=== PATIENT | female | born 1955 | race Caucasian/White ===

== ENCOUNTER 2018-02-18 09:44 | Day surgery (SDC) | payer SELFPAY, MEDICAID ==
[~2018-02-18 09:44] MED LIST: ETOMIDATE 20 MG INJ; LIDOCAINE 2% (SDV) 5 ML INJ
[2018-02-18] MEDS: SOD CHLORIDE 0.9% 1,000 ML IV ×3 (10:23→14:42)
[2018-02-18 10:31] LABS: ADD MAN DIFF? NO
[2018-02-18 10:37] LABS: WHITE BLOOD COUNT 15.4 10^3/ul (4.8-10.8)
[2018-02-18 10:37] LABS: BASOPHIL # 0.1 10^3/ul (0.0-0.1); BASOPHILS % 0.5 % (0.0-2.0); EOSINOPHILS % 0.1 % (0.0-7.0); HEMOGLOBIN 11.1 g/dl (12.0-16.0); LYMPHOCYTES # 1.1 10^3/ul (0.8-2.9); LYMPHOCYTES % 7.3 % (15.0-51.0); MEAN CORPUSCULAR HEMOGLOBIN 29.3 pg (29.0-33.0); MEAN CORPUSCULAR HGB CONC 32.6 g/dl (32.0-37.0); MEAN CORPUSCULAR VOLUME 89.7 fl (82.0-101.0); MEAN PLATELET VOLUME 8.7 fl (7.4-10.4); MONOCYTE # 0.5 10^3/ul (0.3-0.9); MONOCYTES % 3.5 % (0.0-11.0); NEUTROPHIL # 13.5 10^3/ul (1.6-7.5); NEUTROPHILS % 87.8 % (39.0-77.0); PLATELET COUNT 296 10^3/UL (140-415); RED BLOOD COUNT 3.79 10^6/ul (4.20-5.40); RED CELL DISTRIBUTION WIDTH 13.5 % (11.5-14.5)
[2018-02-18 10:51] LABS: ALANINE AMINOTRANSFERASE 38 IU/L (13-69); ALBUMIN 4.5 g/dl (3.3-4.9); ALKALINE PHOSPHATASE 169 IU/L (42-121); ANION GAP 18 (8-16); ASPARTATE AMINO TRANSFERASE 30 IU/L (15-46); BILIRUBIN,INDIRECT 0.4 mg/dl (0-1.1); BILIRUBIN,TOTAL 0.4 mg/dl (0.2-1.3); BLOOD UREA NITROGEN 16 mg/dl (7-20); CALCIUM 9.7 mg/dl (8.4-10.2); CARBON DIOXIDE 21 mmol/L (21-31); CHLORIDE 100 mmol/L (97-110); CREATININE 1.14 mg/dl (0.44-1.00); GLUCOSE 285 mg/dl (70-220); POTASSIUM 4.8 mmol/L (3.5-5.1); SODIUM 134 mmol/L (135-144); TOTAL PROTEIN 7.7 g/dl (6.1-8.1)
[2018-02-18 10:52] LABS: INR 0.93; PROTIME 12.6 Sec (11.9-14.9)
[2018-02-18 10:53] LABS: PARTIAL THROMBOPLASTIN TIME 26.3 Sec (25.0-35.0)
[2018-02-18 11:23] LABS: TROPONIN-I < 0.012 ng/ml (0.000-0.120)
[2018-02-18] MEDS: IODIXANOL LOCM 100 ML BTL (11:39)
[2018-02-18] MEDS: SOD CHLORIDE 0.9% 100 ML (11:39)
[2018-02-18] MEDS ORDERED: ONDANSETRON 4 MG INJ IV (15:30)
[2018-02-18] MEDS ORDERED: MIDAZOLAM 1 MG/ML 2 ML INJ (15:41)
[2018-02-18] MEDS ORDERED: FENTAnyl 50 MCG/ML VIAL (15:41)
[2018-02-18] MEDS ORDERED: CEFAZOLIN 1 GM INJ (15:41)
[2018-02-18] MEDS ORDERED: PHENYLephrine (100 MCG/ML) 10ML SYG ×2 (15:44→16:05)
[2018-02-18] MEDS ORDERED: ONDANSETRON 4 MG INJ (16:07)
[2018-02-18] MEDS ORDERED: FAMOTIDINE 20 MG INJ (16:07)
[2018-02-18] MEDS: HYDROmorphONE 1 MG/5 ML IV SYRINGE IV (16:50)
== END 2018-02-18 18:25 | disposition home or self-care (01) ==
LOC: E/R 09:44 → SDS 15:00
DX: N93.9 Abnormal uterine and vaginal bleeding, unspecified (principal); Z85.41 Personal history of malignant neoplasm of cervix uteri; E11.9 Type 2 diabetes mellitus without complications
CPT/HCPCS: 36415; 74177; 80053; 82962; 84484; 85025; 85610; 85730; 86850; 86900; 86901; 86920; 88305; 93005; 99285-25

== ENCOUNTER 2018-04-17 07:17 | Emergency (ER) | payer MEDICARE, OTHER, MEDICAID ==
[2018-04-17 07:44] LABS: ADD MAN DIFF? NO
[2018-04-17 07:46] LABS: BASOPHILS % 0.4 % (0.0-2.0); EOSINOPHILS # 0.4 10^3/ul (0.0-0.5); EOSINOPHILS % 4.7 % (0.0-7.0); HEMOGLOBIN 7.6 g/dl (12.0-16.0); LYMPHOCYTES # 1.2 10^3/ul (0.8-2.9); LYMPHOCYTES % 14.2 % (15.0-51.0); MEAN CORPUSCULAR HEMOGLOBIN 23.5 pg (29.0-33.0); MEAN CORPUSCULAR HGB CONC 29.2 g/dl (32.0-37.0); MEAN CORPUSCULAR VOLUME 80.5 fl (82.0-101.0); MEAN PLATELET VOLUME 8.7 fl (7.4-10.4); MONOCYTE # 0.5 10^3/ul (0.3-0.9); MONOCYTES % 5.4 % (0.0-11.0); NEUTROPHIL # 6.4 10^3/ul (1.6-7.5); NEUTROPHILS % 74.9 % (39.0-77.0); PLATELET COUNT 305 10^3/UL (140-415); RED BLOOD COUNT 3.23 10^6/ul (4.20-5.40); RED CELL DISTRIBUTION WIDTH 18.1 % (11.5-14.5)
[2018-04-17 07:46] LABS: WHITE BLOOD COUNT 8.5 10^3/ul (4.8-10.8)
[2018-04-17 08:05] LABS: INR 0.87; PROTIME 11.9 Sec (11.9-14.9); PT RATIO 0.9
[2018-04-17 08:12] LABS: ANION GAP 14 (8-16); BLOOD UREA NITROGEN 17 mg/dl (7-20); CALCIUM 9.2 mg/dl (8.4-10.2); CARBON DIOXIDE 23 mmol/L (21-31); CHLORIDE 109 mmol/L (97-110); CREATININE 0.83 mg/dl (0.44-1.00); GLUCOSE 183 mg/dl (70-220); POTASSIUM 4.7 mmol/L (3.5-5.1); SODIUM 141 mmol/L (135-144)
[2018-04-17 08:16] LABS: ALANINE AMINOTRANSFERASE 25 IU/L (13-69); ALBUMIN 3.8 g/dl (3.3-4.9); ALKALINE PHOSPHATASE 254 IU/L (42-121); ASPARTATE AMINO TRANSFERASE 28 IU/L (15-46); BILIRUBIN,INDIRECT 0.2 mg/dl (0-1.1); BILIRUBIN,TOTAL 0.2 mg/dl (0.2-1.3); TOTAL PROTEIN 6.9 g/dl (6.1-8.1)
[2018-04-17 08:33] LABS: IRON 29 ug/dl (35-150)
[2018-04-17 08:43] LABS: % IRON SATURATION 6 % SAT (22-52); TOTAL IRON BINDING CAPACITY 466 ug/dl (241-421)
== END 2018-04-17 09:54 | disposition home or self-care (01) ==
LOC: E/R 07:17
DX: D50.9 Iron deficiency anemia, unspecified (principal); I10 Essential (primary) hypertension; E11.9 Type 2 diabetes mellitus without complications
CPT/HCPCS: 36415; 80048; 80076; 83540; 85025; 85610; 86850; 86900; 86901; 99283